=== PATIENT | female | born 1955 | race Caucasian/White ===

== ENCOUNTER 2017-05-25 13:20 | Inpatient (IN) ==
[2017-05-25 14:19] LABS: URINE CULTURE NEEDED? NO; URINE SOURCE CATH
[2017-05-25 14:19] LABS: MANUAL DIFF NEEDED? NO
[2017-05-25 14:24] LABS: BASO% 0.1 % (0.0-0.8); HEMATOCRIT 37.9 % (37.0-47.0); HEMOGLOBIN 13.6 g/dL (12.0-16.0); IMM GRAN# 0.02 X1000 (0.0-0.04); IMM GRAN% 0.2 % (0.0-0.5); LYMPH# 1.36 X1000 (1.2-3.4); LYMPH% 12.2 % (20.5-51.1); MCH 31.3 PG (27-31); MCHC 35.9 g/dL (33-37); MCV 87.3 FL (81-99); MONO# 1.23 X1000 (0.11-0.59); MONO% 11.1 % (1.7-9.3); MPV 9.3 FL (7.4-10.4); NEUT% 76.4 % (42.2-75.2); PLT 294 X1000 (130-400); RBC 4.34 XMIL (4.2-5.4)
--- NOTE | 2017-05-25 14:25 | Diag Imaging Result Doc PS360 ---
EXAM: HEAD W/O CONTRAST TECHNIQUE: INDICATION: AMS COMPARISON: None. FINDINGS: There is a small chronic lacunar infarct in the subcortical white matter of the right frontal lobe. There is no definite acute infarct given the limited sensitivity of CT versus MRI. The surrounding soft tissues and bony structures are essentially unremarkable. IMPRESSION: Small chronic lacunar infarct involving the right frontal lobe. No definite acute intracranial pathology on the current study. Electronically signed by Red Whitney 05/25/2017 2:22 PM
[2017-05-25 14:26] LABS: BILIRUBIN URINE NEGATIVE (NEGATIVE); BLOOD URINE NEGATIVE (NEGATIVE); COLOR YELLOW; GLUCOSE URINE NEGATIVE (NEGATIVE); LEUKOCYTES URINE NEGATIVE (NEGATIVE); NITRITE URINE NEGATIVE (NEGATIVE); PROTEIN URINE 30 mg/dL (NEGATIVE); SP GRAVITY URINE 1.017; TURBIDITY URINE CLEAR (CLEAR); UROBILINOGEN URINE NORMAL (NORMAL)
[2017-05-25 14:27] LABS: URINE MICRO REVIEW NEEDED? YES
[2017-05-25 14:33] LABS: INR 1.09; PROTIME 11.5 Seconds (9.2-11.7); PTT 26.4 Seconds (22.0-36.0)
[2017-05-25 14:41] LABS: ALLEN TEST YES; BE 2.7 mmoll (-3.0-3.0); BLOOD TYPE ARTERIAL; DRAW SITE R RADIAL; METHB 1.8 % (0.0-1.5); MODALITY ROOM AIR; O2(CT) 18.5 mL/dL (15.0-23.0); PCO2(98.6) 36 mmHg (35-45); PO2(98.6) 88 mmHg (60-100); SAMPLE BLOOD; SAO2 98.3 % (95.0-100.0); THB 13.9 g/dL (11.5-17.4); pH(98.6) 7.47 (7.35-7.45)
--- NOTE | 2017-05-25 14:44 | Diag Imaging Result Doc PS360 ---
CHEST-2 VIEWS - 05/25/2017 INDICATION: ams TECHNIQUE: COMPARISON: None FINDINGS: Lung volumes are low. There is some trace hazy infiltrate or atelectasis in the lower lobes. No pneumothorax or pleural effusion. Heart size and pulmonary vascularity is normal. IMPRESSION: Nonspecific findings. Electronically signed by Melo Perez 05/25/2017 2:42 PM
[2017-05-25 14:46] LABS: UR EPITHELIAL CELLS <10 /HPF (<10); URINE BACTERIA NEGATIVE /HPF; URINE RBC <10 /HPF (<10); URINE WBC <10 /HPF (<10)
[2017-05-25 14:48] LABS: UR AMPHETAMINES QUAL NONE DETECTED (NONE DETECT); UR BARBITUATES QUAL NONE DETECTED (NONE DETECT); UR BENZODIAZEPIN QUAL NONE DETECTED (NONE DETECT); UR CANNABINOIDS QUAL NONE DETECTED (NONE DETECT); UR COCAINE QUAL NONE DETECTED (NONE DETECT); UR METHADONE QUAL NONE DETECTED (NONE DETECT); UR OPIATES QUAL NONE DETECTED (NONE DETECT); UR OXYCODONE QUAL NONE DETECTED (NONE DETECT); UR PCP QUAL NONE DETECTED (NONE DETECT)
[2017-05-25 14:49] LABS: URINE CASTS GRANULAR PRESENT; URINE CRYSTALS NONE SEEN; URINE SMALL ROUND CELLS NONE SEEN
[2017-05-25 14:50] LABS: AGAP 14; ALBUMIN 4.1 g/dL (3.5-5.0); ALKALINE PHOSPHATASE 82 U/L (32-104); BUN 17 mg/dL (8-22); CALCIUM 9.2 mg/dL (8.8-10.2); CHLORIDE 88 mmol/L (98-107); CK PROFILE 72 U/L (24-173); COSMO 263; GOT 13 U/L (10-30); GPT 10 U/L (10-36); POTASSIUM 3.4 mmol/L (3.5-5.1); SODIUM 128 mmol/L (136-145); TCO2 26 mmol/L (25-35); TOTAL BILIRUBIN 0.65 mg/dL (0.20-1.00)
--- NOTE | 2017-05-25 15:07 | EKG Report ---
Test Performed on : 05/25/2017 2:29:36 PM Test Reason : AMS Blood Pressure : / mmHG Vent. Rate : 072 BPM Atrial Rate : 072 BPM P-R Int : 146 ms QRS Dur : 080 ms QT Int : 420 ms P-R-T Axes : 040 042 047 degrees QTc Int : 459 ms Normal sinus rhythm. Normal ECG No previous ECGs available Unconfirmed Result
--- NOTE | 2017-05-25 15:23 | PROVIDER DOCUMENTATION ---
This chart was entered by Sophia Perez Scribe, acting as scribe for Lavell George MD. HPI-General Adult - General Chief Complaint: Altered Mental Status Stated Complaint: FEMALE Time Seen by Provider: 05/25/17 13:30 Source: patient Allergies/Adverse Reactions: Patient Allergies Allergy/AdvReac Type Severity Reaction Status Date / Time No Known Allergies Allergy Verified 05/25/17 15:04 Home Medications: Home Medication List Medication Instructions Recorded Confirmed Last Taken Type Unobtainable [Home Meds 05/25/17 05/25/17 Unknown History Unobtainable] - History of Present Illness -Gen Adult Nature of Presenting Problems: Pt is a 61 year old female who came to the ED with a cc of AMS. On exam pt refused to answer questions. Pt said, "Get me the hell out of here." Location of Pain/Injury: reports: none Pain Radiation: reports: no radiation Quality of Pain: reports: none Severity: reports: mild Onset/Duration: reports: unsure Timing: reports: still present Context/Activities at Onset: reports: none Modifying Factors: improves with: nothing Associated Symptoms: reports: denies symptoms Similar Symptoms Previously?: No Recently seen or treated by another doctor?: No Review of Systems - Adult - REVIEW OF SYSTEMS - ADULT ROS:: unobtainable per condition Constitutional: reports: see HPI Past History - Adult - PAST MEDICAL HISTORY-ADULT Review of Records: reports: Old Records Reviewed, Nursing Assessment Review Major Childhood Illnesses: reports: denies history Cardiovascular: reports: denies history Respiratory: reports: denies history Gastrointestinal: reports: denies history Obstetrical/Gynecological: reports: denies history Genitourinary: reports: denies history Musculoskeletal: reports: denies history Neurological: reports: denies history Endocrine/Immune: reports: denies history Other Conditions: reports: denies history - IMMUNIZATION STATUS Childhood Immunizations: See Nurse Assessment Flu Vaccine: See Nurse Assessment - FAMILY HISTORY Family History: reviewed, not pertinent Physical Exam-General - PHYSICAL EXAM-ADULT Initial Vital Signs Reviewed: Yes - CONSTITUTIONAL General Appearance: lethargic - EYES Eyes: PERRL/EOMI - HEAD, EARS, NOSE, MOUTH & THROAT HENMT: normocephalic/atraumatic, moist mucous membranes - NECK Neck: normal inspection - RESPIRATORY Respiratory: chest non-tender, lungs clear, normal breath sounds - CARDIOVASCULAR Cardiovascular: regular rate, rhythm - GASTROINTESTINAL (ABDOMEN) Abdominal Exam: normal bowel sounds, non tender, soft - MUSCULOSKELETAL Back Exam: normal inspection, no vertebral tenderness Extremity: normal range of motion, non-tender, normal inspection - SKIN Integumentary: normal color, normal turgor, warm/dry - NEUROLOGIC Neurologic: grossly normal, no motor/sensory deficits - PSYCHIATRIC Psych/Mental Status: normal mood/affect, normal thought content, normal thought process, oriented x 3 Progress - PLAN OF CARE/RESULTS Progress/Plan/Lab Results: Vital Signs - 8 hr 05/25/17 13:29 Temperature 97.9 F Pulse Rate 83 Respiratory Rate 19 Blood Pressure 112/80 O2 Sat by Pulse Oximetry 99 Result Diagrams: 05/25/17 13:54 05/25/17 13:54 - XRAY 1 XRAY Study: Chest (nonspecific findings) - CT/MRI 1 CT Study: Head (small chronic lacunar infarct involving the right lobe) - CONSULTS/PCP/HOSPITALIST Notification #1 *Consult/PCP/Hospitalist*: Hospitalist Time Discussed: 15:06 (dicussed with admitting Pt) Consult Disposition: Admit Departure - Departure Date of Disposition Decision: 05/25/17 Time of Disposition Decision: 15:15 DIAGNOSIS: Altered mental status Disposition: ADMITTED INPATIENT 09 Certified Medical Emergency: Emergent Condition: Stable Additional Freetext Instructions: ED Follow Up Instructions: You have been treated by a care provider in the Emergency Department. These instructions are being provided to you so you can have an understanding of how to care for yourself upon discharge. Upon discharge from the Emergency Department, you are responsible for making arrangements for follow-up care by a physician of your choice. Take all prescribed medications as directed. Return to the Emergency Department immediately for any new or worsening symptoms. You may call the Physician Referral phone number at [phone] to obtain a list of Physicians who are taking new patients. Referrals and Follow-Ups: None,PCP [Primary Care Provider] - - Critical Care Note This patient required my direct & personal management of CC.: No Attestation - Physician/ CARLIE Attestation The physician spent face to face time with patient:: Yes Advanced Practice Provider documentation review:: Supervising physician onsite and consulted in the evaluation and care of this patient. The physician did have a face to face encounter with the patient. This chart was documented by the indicated scribe, (Sophia Perez Scribe) and accurately reflects the services I performed and decisions made by me, Lavell George MD, as attested by the provider's signature.
[2017-05-25 16:58] LABS: HEMOGLOBIN A1C 5.2 % (4.8-6.0)
--- NOTE | 2017-05-25 17:02 | Diag Imaging Result Doc PS360 ---
EXAM: MRI BRAIN W/O CONTRAST INDICATION: stroke like symptoms COMPARISON: No prior MRIs available for comparison. FINDINGS: There is no evidence of acute infarct. There is a small chronic lacunar infarct involving the periventricular white matter of the right frontal lobe and an even smaller chronic lacunar infarct involving the periventricular white matter of the left frontal lobe adjacent to the frontal horn. There is mild patchy T2/FLAIR hyperintensity in the periventricular white matter and subcortical white matter suggesting minimal microangiopathy. There is no discrete intracranial mass, mass effect, or intracranial hemorrhage. The surrounding soft tissues and bony structures are essentially unremarkable. IMPRESSION: A couple small chronic lacunar infarcts involving the periventricular white matter of the frontal lobes bilaterally and minimal white matter microangiopathy. No evidence of acute intracranial pathology. Electronically signed by Red Whitney 05/25/2017 4:59 PM
[2017-05-25] MEDS ORDERED: TYLENOL PO PRN (17:19)
[2017-05-25] MEDS ORDERED: ZOFRAN IV PRN (17:19)
--- NOTE | 2017-05-25 17:24 | HISTORY AND PHYSICAL ---
PRIMARY CARE PROVIDER: Unknown. CHIEF COMPLAINT: Altered mental status. HISTORY OF PRESENT ILLNESS: Ms. Jazlyn Tinajero is a 61-year-old, female with an unknown medical history. There was no family at the bedside. According to the nurses the stated that she just quit talking to him. Upon presentation to the ER and during ER physician assessment, she refused to answer questions and said "Get me the hell out of here." Upon my assessment the patient was not agitated. She was very slow to respond to questions. She had a left facial droop. Her left pupil was slightly larger than the right. She would follow commands. Left lower extremity was a little bit weaker than the right. She had a left slight pronator drift of the left upper extremity. Tongue was midline. She could tell me her name and what the current year was only. She was a poor historian. Workup included a head CT which revealed an old right frontal CVA which would explain the left-sided weakness of the left lower extremity, the left facial droop, and the trace left arm pronator drift. The patient states that she has never had any stroke-like symptoms such as weakness or facial droop although it would take several seconds for her to answer questions. Her affect was somewhat odd. We will order an MRI of the brain to further evaluate for stroke, carotids, echocardiogram, start her on aspirin and a statin. There is some question of possible history of schizophrenia but unsure of where that may have come from. PAST MEDICAL HISTORY: Old right frontal infarct. Questionable schizophrenia. The patient denied any other history although the patient is a poor historian. PAST SURGICAL HISTORY: section. SOCIAL HISTORY: She states she smoked 1-2 packs per day for an unknown amount of years. She denies alcohol or illicit drug use. She states she lives at home alone but there is question as to whether this patient actually has a . FAMILY HISTORY: Patient states that there is no family history. REVIEW OF SYSTEMS: She denies any pain or shortness of breath. She denies nausea, vomiting, or diarrhea. Denies constipation. Denies fever or chills. She had no complaints. ALLERGIES: No known drug allergies. HOME MEDICATIONS: Unobtainable. PHYSICAL EXAMINATION: VITAL SIGNS: Temperature 97.9 degrees, heart rate 71, respiratory rate 19, blood pressure 155/77, O2 saturation 99% on room air. She is 5 feet 6 inches tall, 220 pounds, BMI of 19.4. GENERAL: Ms. Jazlyn Tinajero is a 61-year-old, ill-appearing, female. She is in no acute distress. Very slow to answer questions but she is alert and attempts to answer questions. HEENT: Atraumatic, normocephalic. Pupils unequal, left pupil about a 3, right pupil a 2, both equal and brisk. Extraocular movements were intact. Mucous membranes are dry. She has poor dentition. Most teeth in the upper mandible are missing on the right side. NECK: No JVD or carotid bruits noted. CARDIOVASCULAR: S1, S2. Regular rate and rhythm. No rubs, gallops, or murmurs. PULMONARY: Clear to auscultation. Bilateral breath sounds. No accessory muscle use or work of breathing noted. GASTROINTESTINAL: Soft, nontender, nondistended. Positive bowel sounds x4. EXTREMITIES: No edema noted. +2 dorsalis and radial pulses. Trace left lower extremity weakness. Left upper extremity trace pronator drift. Upper extremity strength was equal, range of motion equal. SKIN: Warm, dry, intact. NEUROLOGIC: Alert and oriented to name and year. Disoriented to place. Very slow to answer questions. Mild dysarthria but this could be secondary to half of her teeth missing. Tongue was midline. Trace left facial droop noted. Left upper extremity with trace pronator drift. Left lower extremity 4.5/5 strength. Right upper/lower, left upper extremity 5/5 on strength. Follows all commands but was very slow to follow commands. She would have to be coached on what to do. 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 Gait was not assessed. LABORATORY DATA: White blood cells 11,000, hemoglobin 13, hematocrit 37, platelet count 294,000. INR 1.09, PTT is 26.4, pH 7.47, pCO2 36, PO2 of 88, bicarbonate 27, base excess 2.7, saturation 94% on room air. BMP: Sodium 128, potassium 3.4, chloride 88, BUN 17, creatinine 0.7, glucose 173, calcium 9.2, bilirubin 0.65, AST 13, ALT 10, CK 72, troponin less than 0.01 , albumin 4.1, plasma lactate 1.2. Urinalysis: 30 protein, 10 ketones, otherwise negative. Urine drug screen negative. Alcohol level 0. IMAGING: EKG: Normal sinus rhythm, rate 72, QTc is 459. Chest x-ray: Lung volumes low, some hazy trace infiltrate or atelectasis in the lower lobes, heart size is normal, pulmonary vasculature normal, no pneumothorax or pleural effusion. Head CT: Small chronic lacunar infarct involving the right frontal lobe, no definite acute intracranial pathology on the current setting. Brain MRI pending. ASSESSMENT AND PLAN: 1. Old right frontal cerebrovascular accident versus new cerebrovascular accident versus transient ischemic attack. The patient does have signs and symptoms of old right frontal cerebrovascular accident. We will start her on aspirin and statin. Get an MRI of the brain. Check a carotid ultrasound and echocardiogram. 2. Hyponatremia and hypochloremia. We will do normal saline at 75 an hour. 3. Metabolic encephalopathy. Could be from hyponatremia or stroke. We will continue to monitor. 4. Leukocytosis. There are no signs or symptoms of infection. Chest x-ray is clear. Urinalysis clear. We will check blood cultures. She is afebrile. We will await antibiotics for now. 5. Hyperglycemia. Patient states she is not diabetic. We will check a hemoglobin A1c in the morning. 6. Tobacco abuse. Cessation discussed. 7. Deep venous thrombosis prophylaxis. Lovenox. 8. Questionable schizophrenia. Not sure if the had told the Nursing Staff this. We will have to re-evaluate once family comes around. Dictated by ARI Miranda for Anton Hickman MD cc: ARI Miranda MD pt examined, agree with above APENOT MTDD
[2017-05-25] MEDS ORDERED: HALDOL IV PRN (18:52)
[2017-05-25] MEDS: NS 1,000 ML IV SCH (20:27)
[2017-05-25] MEDS ORDERED: LIPITOR PO SCH (21:00)
[2017-05-26] MEDS: NS 1,000 ML IV SCH ×2 (06:17→08:07)
[2017-05-26 06:24] LABS: MANUAL DIFF NEEDED? NO
[2017-05-26 06:29] LABS: BASO% 0.4 % (0.0-0.8); EOS# 0.03 X1000 (0.0-0.7); EOS% 0.4 % (0.0-10.0); LYMPH# 1.22 X1000 (1.2-3.4); LYMPH% 15.5 % (20.5-51.1); MCH 30.4 PG (27-31); MCHC 34.1 g/dL (33-37); MCV 88.9 FL (81-99); MONO# 1.04 X1000 (0.11-0.59); MONO% 13.2 % (1.7-9.3); MPV 9.3 FL (7.4-10.4); NEUT% 70.5 % (42.2-75.2); PLT 274 X1000 (130-400); RBC 4.61 XMIL (4.2-5.4)
[2017-05-26 06:53] LABS: AGAP 13; ALBUMIN 3.8 g/dL (3.5-5.0); ALKALINE PHOSPHATASE 80 U/L (32-104); BUN 9 mg/dL (8-22); CHLORIDE 94 mmol/L (98-107); COSMO 269; GOT 13 U/L (10-30); GPT 9 U/L (10-36); POTASSIUM 3.3 mmol/L (3.5-5.1); SODIUM 134 mmol/L (136-145); TCO2 27 mmol/L (25-35); TOTAL BILIRUBIN 1.02 mg/dL (0.20-1.00); TOTAL PROTEIN 6.7 g/dL (6.3-8.3)
[2017-05-26 07:28] VITALS: BP 163/79
[2017-05-26] MEDS: LOVENOX SUBQ SCH ×2 (08:07→09:59)
[2017-05-26] MEDS: ASPIRIN PO SCH ×2 (08:07→08:15)
[2017-05-26] MEDS ORDERED: KLOR-CON PO ONE (09:50)
[2017-05-26] MEDS: POTASSIUM CHLORIDE 20 MEQ/SWI 20 MEQ/100 ML IVPB IV SCH ×2 (10:08→11:57)
--- NOTE | 2017-05-26 17:04 | CONSULTATION ---
DATE OF CONSULTATION: 05/26/2017 Ms. Tinajero is to be transported to [facility] for further evaluation and management. I was consulted for Neurology evaluation this morning. She did not answer my questions or provide any history. She seemed attentive at times but did not respond with appropriate speech. The speech she did provide was not dysarthric. She was not attentive to language or cognitive testing. Head and neck are unremarkable. There is no meningismus. She has full lateral eye movements. Facial motility is symmetric. Tongue is midline. Strength is normal in the arms and legs based on observation. She did not follow commands for formal motor testing. Tone is equal and symmetric in the limbs. I did not ask her to stand or walk. She was not attentive to brief attempt at sensory testing. She did not follow commands to touch her nose. However, observing her movement, there is no evidence of cerebellar deficit. There was no tremor. Workup here includes labs showing WBC count 11,000. Initial sodium was 128 and later 134. Blood sugar was 173 and later 135. Urine drug screen was all negative. She had noncontrast CT initially. Brain MRI without contrast is reported to show small frontal lacunar lesions bilaterally but nothing definitely acute. She has been afebrile. Systolic blood pressure was initially 112 but has been 150s to 160s since admission. Heart rate has been steady 70s to 80s. IMPRESSION: Apparent incomplete attention but nothing definitely abnormal to suggest a CHARRER lesion. The MRI findings are noted. She had slightly elevated WBC count but no fever and no other evidence of CHARRER infection. She has some minor metabolic findings but nothing that likely would be associated with a metabolic encephalopathy or seizure. Her medicine list is uncertain but drug screen was all negative. The admission note indicates possible previous diagnosis of schizophrenia. Arrangements have been made to transfer her to [facility] for psychiatric evaluation and management. If there continues to be a question of neurologic problem, we might consider EEG to make sure she is not having subclinical seizures. If she has been taking medications that might be associated with seizure or encephalopathy and a withdrawal state. We can reevaluate that, but her appearance is not of medicine intoxication or withdrawal now. I do not have any urgent suggestion from a neurologic standpoint. My visit was abbreviated by the transfer. There is a comment in the admission note regarding anisocoria. She vigorously guarded and shut her eyelids and I did not see her pupils well on my limited exam. Thanks for asking me to see Ms. Tinajero. cc: MD KOFI Stout III
--- NOTE | 2017-06-22 00:46 | DISCHARGE SUMMARY ---
ADMISSION DATE: 05/25/2017 DISCHARGE DATE: 05/26/2017 DISCHARGE DIAGNOSES: 1. Transient ischemic attack versus new cerebrovascular accident. 2. Hyponatremia. 3. Metabolic encephalopathy. HISTORY AND HOSPITAL COURSE: Briefly, this is a 61-year-old female, presenting with dysarthria. She was slow to respond. She did have some left facial droop and weakness. She was put in observation. The plan was to get an MRI and carotid and echocardiogram. There was some questionable history of schizophrenia. She did end up getting a brain MRI and consultation per Dr. Serna. The patient was evaluated, but did not feel she had a clear diagnosis. Her MRI on the showed chronic infarcts, but no acute procedure. She was discharged on the . She was evaluated by Arnold Falcon, who recommended transfer for evaluation. The patient was eventually pursued court hold. She really had no neurological deficit. When she came in, she was altered. She did not know where she was. She was acutely anxious and agitated, as if she was in an acute psychotic episode, which is likely the most consistent diagnosis. The rest of the care will be per Arnold Falcon. She has not been on any chronic psychiatric treatment in several weeks, and possibly longer. I think her entire presentation was related to primary psychiatric issues, either schizophrenia or some form thereof. cc: Anton Hickman MD
--- NOTE | 2017-08-03 09:47 | ED EKG INTERP ---
This chart was entered by Sophia Perez Scribe, acting as scribe for Ramirez Contreras MD. EKG Interpretation - EKG Time of EKG reading by physician:: 14:29 EKG Read and Signed by:: Ramirez Contreras EKG Interpretation (*Must complete 3 of following elements*): Normal Rate: 72 Rhythm: NSR Attestation - Physician/ CARLIE Attestation Patient care was provided by Advanced Practice Provider:: No The physician spent face to face time with patient:: Yes Advanced Practice Provider documentation review:: Supervising physician onsite and consulted in the evaluation and care of this patient. The physician did have a face to face encounter with the patient. This chart was documented by the indicated scribe, (Sophia Perez Scribe) and accurately reflects the services I performed and decisions made by Ben rodriguez Christophe I, MD, as attested by the provider's signature.
== END 2017-05-26 13:14 ==
LOC: ED 13:20 → 3N 16:18
PROVIDERS: ATTEND Internal Medicine